=== PATIENT | male | born 1990 | race Two or more races ===

== ENCOUNTER 2025-07-25 09:41 | Emergency (ER) | payer OTHER ==
[~2025-07-25] VITALS: Ht 182.9 cm; Wt 124.7 kg
[2025-07-25] MEDS ORDERED: KETOROLAC TROMETHAMINE INJ 30 MG/ML VIAL ONE (10:07)
[2025-07-25] MEDS ORDERED: METHOCARBAMOL (500MG) 500 MG TABLET ONE (10:07)
[2025-07-25] MEDS ORDERED: oxyCODONE/APAP (5/325 MG) 1 UDTAB TABLET ONE (10:07)
[2025-07-25] MEDS: KETOROLAC TROMETHAMINE INJ 30 MG/ML VIAL IM ONE (10:14)
[2025-07-25] MEDS: METHOCARBAMOL (750MG) 750 MG TABLET PO SCH (10:15)
[2025-07-25] MEDS: oxyCODONE/APAP (5/325 MG) 1 UDTAB TABLET PO ONE (10:15)
[2025-07-25] MEDS ORDERED: KETO10TA2 PO (10:25)
[2025-07-25] MEDS ORDERED: METH-649 PO (12:57)
[2025-07-25 14:10] VITALS: BP 128/79; TEMP 98.1; O2SAT 97
== END 2025-07-25 14:11 | disposition home or self-care (01) ==
LOC: ER 09:50
DX: M54.50 Low back pain, unspecified (principal); G89.29 Other chronic pain
CPT/HCPCS: 99283; 96374; J1885